=== PATIENT | male | born 1945 | race Caucasian/White ===

== ENCOUNTER 2018-03-10 15:01 | Emergency (ER) | payer MEDICARE, OTHER ==
[2018-03-10 16:00] LABS: #Eosinphils 0.1 thou/uL (0.0-0.7); #Monocytes 0.5 thou/uL (0.11-0.59); #Neutrophils 3.2 thou/uL (1.40-6.50); %Lymphocytes 21.1 % (21.0-51.0); %Monocytes 9.6 % (0.0-10.0); %Neutrophils 66.3 % (42.0-75.0); Hemoglobin 13.7 g/dL (14.0-18.0); Mean Corpuscular Hemoglobin 32.6 pg (27.0-31.0); Mean Platelet Volume 6.1 fL (7.4-10.4); Platelet Count 220 thou/uL (130-400); RBC Distribution Width 11.2 % (11.5-14.5); White Blood Cell (WBC) Count 4.9 thou/uL (4.8-10.8)
[2018-03-10 16:19] LABS: ALT (SGPT) 25 U/L (8-55); AST (SGOT) 19 U/L (5-34); Albumin 4.5 g/dL (3.4-4.8); Alkaline Phosphatase 92 U/L (40-150); Anion Gap 13 mmol/L (10-20); BUN (Urea Nitrogen) 16 mg/dL (8.4-25.7); Bilirubin, Total 1.4 mg/dL (0.2-1.2); Calc. Creatinine Clearance 0 mL/min (70-130); Calcium 9.4 mg/dL (7.8-10.44); Carbon Dioxide 25 mmol/L (23-31); Chloride 108 mmol/L (98-107); Estimated GFR-MDRD 85; Globulin 2.8 g/dL (2.4-3.5); Glucose 94 mg/dL (80-115); Potassium 4.5 mmol/L (3.5-5.1); Protein, Total 7.3 g/dL (5.8-8.1); Sodium 141 mmol/L (136-145)
[2018-03-10] MEDS ORDERED: traMADol HCl 50 MG TAB ONE (18:04)
[2018-03-10] MEDS ORDERED: Acetaminophen/Codeine 30-300mg Tablet ONE (18:10)
--- NOTE | 2018-03-10 18:14 | RAD ---
LEFT ANKLE THREE VIEWS: 03/10/18 HISTORY: Left ankle injury. FINDINGS: Ankle mortise and talar dome are intact. Soft tissue swelling about the ankle. Mild osteophytosis. No acute fracture or dislocation. IMPRESSION: Soft tissue swelling. Mild degenerative changes. No acute osseous abnormalities are demonstrated. POS: ARNAUD
--- NOTE | 2018-03-10 18:16 | RAD ---
LEFT LOWER LEG TWO VIEWS: 03/10/18 HISTORY: Left leg injury. FINDINGS: Tibia and fibula are intact. No acute fracture or dislocation. IMPRESSION: No acute osseous abnormalities are demonstrated. POS: ARNAUD
--- NOTE | 2018-03-10 18:16 | RAD ---
LEFT FOOT THREE VIEWS: 03/10/18 HISTORY: Left foot injury. FINDINGS: Lisfranc joint alignment is anatomic. Plantar arch maintained and slightly exaggerated. Mild osteophy tosis throughout the foot. No acute fracture or dislocation. Soft tissue swelling about the foot. IMPRESSION: Soft tissue swelling and degenerative changes. No acute osseous abnormalities are demonstrated. POS: ARNAUD
--- NOTE | 2018-03-10 19:24 | ULT ---
VENOUS DUPLEX SONOGRAM LEFT LOWER EXTREMITY: 03/10/18 HISTORY: Left leg pain and edema. FINDINGS: The left common femoral vein and greater saphenous junction were evaluated along with the femoral, de ep femoral, popliteal, and posterior tibial veins. There is good color and spectral doppler flow, com pression, and augmentation. IMPRESSION: No sonographic evidence of DVT within the left lower extremity. POS: JANET
[2018-03-11] MEDS ORDERED: Lidocaine 1% (PF) 30 ML VIAL ONE (01:00)
== END 2018-03-10 20:23 | disposition home or self-care (01) ==
LOC: ERS 15:01
DX: S90.32XA Contusion of left foot, initial encounter (principal); W11.XXXA Fall on and from ladder, initial encounter
CPT/HCPCS: 36415; 80053; 83880; 85025

== ENCOUNTER 2018-08-02 10:47 | Outpatient (CLI) | payer MEDICARE, OTHER ==
--- NOTE | 2018-08-02 12:49 | BD ---
BONE DENSITOMETRY: INDICATION: A 73-year-old male patient. Screening is listed as the reason for the exam. FINDINGS: Lumbar Spine: BMD (g/cm2) L1 0.771 T-Score: -2.7 L2 0.876 T-Score: -2.0 L3 0.945 T-Score: -1.4 L4 0.998 T-Score: -0.8 L1-L4 0.904 T-Score: -1.7 Femoral Neck: 0.565 T-Score: -2.7 Total Femur: 0.751 T-Score: -1.9 Impression: 1. Bone mineral density of the femoral neck indicates osteoporosis. 2. Bone mineral density of the lumbar spine indicates osteopenia. The L1 vertebrae is in the osteop orotic range. POS: [facility]
== END 2018-08-02 10:48 | disposition home or self-care (01) ==
LOC: BICMAMMO 10:47
PROVIDERS: ATTEND Internal Medicine Rheumatology
DX: Z13.820 Encounter for screening for osteoporosis (principal); M81.0 Age-related osteoporosis without current pathological fracture; M85.88 Other specified disorders of bone density and structure, other site
CPT/HCPCS: 77080